=== PATIENT | male | born 1985 | race African-American/Black ===

== ENCOUNTER 2022-08-15 09:46 | Emergency (ER) | payer OTHER ==
[2022-08-15 10:28] VITALS: BP 119/74; PULSE 67; RESP 16; TEMP 98.2; BMI 27.4
[2022-08-15] MEDS ORDERED: ACETAMINOPHEN 500 MG TABLET (FP) PO ONE (11:37)
[2022-08-15] MEDS ORDERED: LIDOCAINE 5% TOPICAL PATCH TP ONE (11:37)
[2022-08-15] MEDS ORDERED: KETOROLAC TROMETHAMINE 30 MG/1 ML VIAL IM ONE (11:47)
[2022-08-15] MEDS ORDERED: KETOROLAC TROMETHAMINE 30 MG/1 ML VIAL ONE (11:50)
[2022-08-15] MEDS ORDERED: LIDOCAINE 5% TOPICAL PATCH ONE (11:50)
[2022-08-15] MEDS ORDERED: LIDOCAINE PATCH REMOVAL MC SCH (22:00)
== END 2022-08-15 12:27 | disposition home or self-care (01) ==
LOC: JERFT 09:46
PROC: 3E023GC Introduction of Other Therapeutic Substance into Muscle, Percutaneous Approach (ICD-10-PCS; principal; 2022-08-15)
DX: M54.2 Cervicalgia (principal); R07.89 Other chest pain
CPT/HCPCS: 71046-TC-FY; 99284-25

== ENCOUNTER 2024-07-16 09:31 | Emergency (ER) | payer OTHER ==
[2024-07-16 09:48] VITALS: BP 140/69; PULSE 62; RESP 16; TEMP 97.1; BMI 25.7
== END 2024-07-16 11:18 | disposition home or self-care (01) ==
LOC: JERFT 09:31
DX: S93.402A Sprain of unspecified ligament of left ankle, initial encounter (principal); X50.0XXA Overexertion from strenuous movement or load, initial encounter; Y93.56 Activity, jumping rope
CPT/HCPCS: 73610-TC-LT-FY; 99283-25